=== PATIENT | male | born 1975 | race Hispanic/Latino ===

== ENCOUNTER 2022-02-23 12:00 | Observation (INO) | payer OTHER ==
[~2022-02-23] VITALS: Ht 177.8 cm; Wt 93.9 kg
[2022-02-24 11:23] LABS: BASOPHILS % (AUTO) 0.6 % (0.0-5.0); HEMATOCRIT 44.6 % (42-54); MEAN CORPUSCULAR HEMOGLOBIN 30.5 pg (27.0-33.0); MEAN CORPUSCULAR HGB CONC 35.7 g/dL (32.0-36.0); MEAN CORPUSCULAR VOLUME 85.6 fL (79-99); MONOCYTES % (AUTO) 11.9 % (3.0-13.0); NEUTROPHILS % (AUTO) 45.1 % (40.0-77.0); PLATELET COUNT (AUTO) 170 K/uL (130-400); RED BLOOD CELL COUNT(AUTO) 5.21 MIL/uL (4.50-6.20); RED CELL DISTRIBUTION WIDTH 12.2 % (11.0-15.5); WHITE BLOOD COUNT (AUTO) 4.9 K/uL (4.8-10.8)
[2022-02-24 11:33] LABS: POTASSIUM 4.2 mmol/L (3.5-5.1)
[2022-02-24 13:14] VITALS: BP 109/70
[2022-02-24] MEDS ORDERED: ESOM40CA PO (13:50)
[2022-02-24] MEDS ORDERED: NEBI5TAB11 PO (13:50)
[2022-02-24] MEDS ORDERED: TRAM50TA4 PO (13:50)
[2022-02-24] MEDS ORDERED: VORT20TA PO (13:50)
[2022-02-24] MEDS ORDERED: TRAZ-187 PO (13:50)
[2022-02-24] MEDS ORDERED: ROSU20TA31 PO (13:50)
[2022-02-25] VITALS (18 sets, daily range): BP systolic 110–141; BP diastolic 60–88
[2022-02-25] MEDS ORDERED: BUPIVACAINE/EPI/PF 0.5% 30ML VIAL IJ ONE (04:52)
[2022-02-25] MEDS ORDERED: CEFAZOLIN SODIUM 1 GM VIAL ONE (04:52)
[2022-02-25] MEDS ORDERED: MORPHINE PF 100MG/10ML AMP IV ONE (04:53)
[2022-02-25] MEDS ORDERED: THROMBIN-JMI 20000 UNIT KIT TP ONE (04:53)
[2022-02-25] MEDS ORDERED: LACTATED RINGERS 1000ML 1,000 ML IV ONE (06:28)
[2022-02-25] MEDS: CEFAZOLIN SODIUM 1 GM VIAL ONE ×2 (06:43→08:00)
[2022-02-25] MEDS ORDERED: LIDOCAINE PF 100MG/5ML (2%) SYRINGE 5ML ONE (07:04)
[2022-02-25] MEDS ORDERED: SUCCINYLCHOLINE CHLORIDE 20 MG/ML 10 ML VIAL ONE (07:04)
[2022-02-25] MEDS ORDERED: NEOSTIGMINE 5MG/5ML SYR IV ONE (07:05)
[2022-02-25] MEDS ORDERED: MIDAZOLAM HCL 1 MG/ML 2ML VIAL ONE (07:05)
[2022-02-25] MEDS ORDERED: DEXAMETHASONE SOD PHOSPHATE 10MG/ML 1ML VIAL ONE ×2 (07:05→07:36)
[2022-02-25] MEDS ORDERED: GLYCOPYRROLATE 1 MG/5 ML SYRINGE ONE ×2 (07:05→09:43)
[2022-02-25] MEDS ORDERED: PROPOFOL 10 MG/ML 20ML VIAL IV ONE (07:05)
[2022-02-25] MEDS ORDERED: ONDANSETRON 4MG INJ ONE (07:05)
[2022-02-25] MEDS ORDERED: FENTANYL CITRATE PF 50 MCG/1 ML 2ML VIAL ONE ×2 (07:06→08:02)
[2022-02-25] MEDS ORDERED: ROCURONIUM 10MG/1ML SYR 10 MG/ML ML ONE (07:06)
[2022-02-25] MEDS ORDERED: ARTIFICIAL TEARS 3.5 GM OINTMENT ONE (07:41)
[2022-02-25] MEDS ORDERED: ESMOLOL HCL 10 MG/ML 10 ML VIAL ONE (09:12)
[2022-02-25] MEDS ORDERED: EPHEDRINE SULFATE 50 MG/ML AMPULE ONE (09:23)
[2022-02-25] MEDS ORDERED: MEPERIDINE-PF 25 MG/ML SYG ONE ×2 (10:17→10:29)
[2022-02-25] MEDS ORDERED: PROMETHAZINE HCL 25 MG/ML 1ML AMPULE IM PRN (10:30)
[2022-02-25] MEDS ORDERED: MORPHINE 2 MG SYG IVP PRN (10:30)
[2022-02-25] MEDS ORDERED: 0.9%NACL 10ML VIAL IVP PRN (10:30)
[2022-02-25] MEDS ORDERED: TRAMADOL HCL 50 MG TABLET PO PRN (10:30)
[2022-02-25] MEDS: LACTATED RINGERS 1000ML 1,000 ML IV SCH ×2 (10:30→22:29)
[2022-02-25] MEDS: DEXAMETHASONE SOD PHOSPHATE 4 MG/ML 1ML VIAL IVP SCH ×3 (12:43→20:27)
[2022-02-25] MEDS: HYDROCODONE/ACETAMINOPHEN 5/325 MG TAB PO PRN ×2 (15:05→22:40)
[2022-02-25] MEDS: CEFAZOLIN SODIUM 2 GM VIAL IVP SCH ×3 (15:58→22:36)
[2022-02-25] MEDS ORDERED: TRAZODONE HCL 100 MG TABLET PO SCH (21:00)
[2022-02-25] MEDS ORDERED: ATORVASTATIN 40 MG TABLET PO SCH (21:00)
[2022-02-26 00:13] VITALS: BP 109/64
[2022-02-26] MEDS: DEXAMETHASONE SOD PHOSPHATE 4 MG/ML 1ML VIAL IVP SCH ×2 (03:28→09:02)
[2022-02-26] MEDS: HYDROCODONE/ACETAMINOPHEN 5/325 MG TAB PO PRN (03:32)
[2022-02-26 04:05] VITALS: BP 97/63
[2022-02-26 08:00] VITALS: BP 107/63
[2022-02-26] MEDS: CEFAZOLIN SODIUM 2 GM VIAL IVP SCH (08:05)
[2022-02-26] MEDS: LACTATED RINGERS 1000ML 1,000 ML IV SCH (08:06)
[2022-02-26] MEDS ORDERED: PANTOPRAZOLE 40 MG TAB DR PO SCH (09:00)
[2022-02-26] MEDS ORDERED: NEBIVOLOL 5 MG PO SCH (09:00)
[2022-02-26] MEDS ORDERED: BRINTELLIX 20 MG PO SCH (09:00)
== END 2022-02-26 11:45 | disposition home or self-care (01) ==
LOC: EDSTATUS 12:00 → DAHIP 02-25 06:00 → 4CH 02-25 11:18
PROVIDERS: ADMIT Neurological Surgery; ATTEND Neurological Surgery
DX: M51.27 Other intervertebral disc displacement, lumbosacral region (principal); Z20.822 Contact with and (suspected) exposure to COVID-19; M51.16 Intervertebral disc disorders with radiculopathy, lumbar region; Z79.899 Other long term (current) drug therapy; X50.0XXA Overexertion from strenuous movement or load, initial encounter; Y92.89 Other specified places as the place of occurrence of the external cause; Y93.89 Activity, other specified; Y99.8 Other external cause status
CPT/HCPCS: 80048; 85025; 87426; 36415; 71045; 93005; 63047; 96376 ×2; 96365; 96375; 72020; A6260; G0378 ×25; G0379; A4663; J7120 ×3; A4344; J3010 ×2; J0690 ×3; J3490 ×5; J1100 ×7; J2710; J0330; J2001; J2250; J2704; J2274; J2405; J2175 ×2; A4649; A4215; A4223; A4222; A4221; A4600